=== PATIENT | female | born 1955 | race African-American/Black ===

== ENCOUNTER → 2017-06-03 | Outpatient (CLI) | payer MEDICARE ==
[~2017-06-03] VITALS: Ht 170.2 cm; Wt 63.7 kg
[~2017-06-03] MED LIST: ASPIRINEC PO; COSOPT EYE DROPS5 ML OP; FERRO-TIME325 MG PO; FOLIC ACID1 MG PO; LUMAGEN OP; PANTOPRAZOLE SO40 MG PO; PRED FORTE1 ML OU; TENORMIN25 MG PO; VICODIN PO
--- NOTE | ~2017-06-03 | XA91 ---
[facility] A Service of [facility] RADIOLOGY TEXT RESULTS PATIENT: ESME SANDERS LOCATION: CIVR : 54 UNIT #: [id number] AGE: [address]: Dimitri Kendrick MD SEX: F ORDER DR: [id number] [facility] [address] [place], [place] [address] [id number] O MR#: [id number] Acc #: [id number] NAME: ESME SANDERS : 1955 SEX: F STUDY DATE/TIME: 06/03/2017 9:55 UNIT: CIVR ROOM: STUDY DESCRIPTION: XA CVC Tunneled W Port Attending Physician: Dimitri Kendrick M.D., Ph.D. Ordering Physician: Dimitri Kendrick M.D., Ph.D. Primary Care Physician: Dom Nunez M.D. MEDICAL IMAGING REPORT This report is preliminary unless electronic signature is present EXAM MediPort placement INDICATION This patient has a history of colon cancer. She underwent right hemicolectomy in April 2017. FINDINGS The procedure was explained to the patient including risks, benefits, potential complications and potential for alternative forms of treatment. Informed consent was obtained. Prior to initiating the procedure, a formal time-out procedure was performed. Using all elements of maximal sterile barrier technique including hand hygiene, caps, sterile gowns, gloves and masks, the right neck and chest were prepped with 2% Chlorhexidine for cutaneous antisepsis and covered with a large sterile sheet. The ultrasound probe was covered with a sterile probe cover and sterile gel was applied. Real-time sterile ultrasound guidance was used to localize the right internal jugular vein which was found to be patent and compressible. Hard copy ultrasound image was obtained. After local anesthesia with 1% Xylocaine, the vein was punctured using real-time sterile ultrasound guidance. An 0.018 guidewire was advanced into the superior vena cava under fluoroscopic guidance. A micropuncture sheath was placed and a J-wire was advanced into the inferior vena cava under fluoroscopic guidance. Skin and subcutaneous tissues of the right anterolateral chest wall were anesthetized with buffered Lidocaine and Lidocaine with epinephrine. Port pocket was created using a combination of blunt and sharp dissection. The port was seated within the pocket and secured using 2 3-0 Vicryl sutures and then was tunneled up through the right anterolateral chest wall to the insertion site at the neck. Peel away sheath was advanced over the wire. Catheter was measured and trimmed and then advanced through the peel away sheath and positioned within the superior vena cava. Following placement [facility] A Service of [facility] RADIOLOGY TEXT RESULTS PATIENT: ESME SANDERS LOCATION: CIVR : 54 UNIT #: [id number] AGE: [address]: Dimitri Kendrick MD SEX: F ORDER DR: of the catheter, it flushed and aspirated easily. Deep layer of the port pocket was closed using interrupted 3-0 Vicryl sutures and a running 4-0 Monocryl suture was used to close the skin. Single 4-0 Monocryl suture was used to close the insertion site at the neck. Position of the catheter was confirmed with a radiographic image. Total fluoroscopy time was 0.1 minutes. AK was 1 mGy. Patient received moderate sedation consisting of 2 mg of Versed and 100 mcg of Fentanyl. I supervised the IVR nurse and monitored the patient's vital signs for a total of 30 minutes of [id number] time. IMPRESSION Successful placement of a right internal jugular vein MediPort which terminates in the superior vena cava. This catheter is ready for immediate use. Ultrasound and fluoroscopy were used during placement of the catheter and permanent images were saved. Dictated by... Sowmya Carter M.D. THIS IS AN ELECTRONICALLY VERIFIED REPORT Sowmya Carter M.D. at 06/04/2017 4:48 PM SUHAIL/uriel TD: 06/04/2017 08:56 JOB #: [id number] MEDICAL IMAGING REPORT Page 1 of 1 COPY
[2017-06-03 08:27] LABS: BASOPHIL% 0.6 % (0-2.5); DIFF IND NO; EOSINOPHIL# 0.1 X10e3 (0-0.7); EOSINOPHIL% 1.5 % (0.0-7.0); HEMOGLOBIN 12.7 gm/dL (12.0-16.0); LYMPHOCYTE% 21.5 % (17.0-45.0); MEAN CELL VOLUME 82.9 FL (83-96); MEAN CORPUSCULAR HEMOGLOBIN 26.3 PG (28-34); MEAN CORPUSCULAR HGB CONC 31.8 g/dL (30-36); MEAN PLATELET VOLUME 8.1 FL (6.5-11.5); MONOCYTE# 0.4 X10e3 (0-1.0); MONOCYTE% 9.1 % (3.0-12.0); NEUTROPHIL# 3.2 X10e3 (1.5-7.1); NEUTROPHIL% 67.3 % (40-75); PLATELET COUNT 123 X10e3 (140-420); RED BLOOD COUNT 4.83 X10e (3.90-5.30); RED CELL DISTRIBUTION WIDTH 22.6 % (11.0-15.5); WHITE BLOOD COUNT 4.8 X10e3 (4.0-10.5)
[2017-06-03 08:37] LABS: INR 1.1; PARTIAL THROMBOPLASTIN TIME 29.1 SECONDS (23.5-31.3); PROTHROMBIN TIME (PATIENT) 11.4 SECONDS (10.0-11.7)
== END | disposition home or self-care (01) ==
LOC: CIVR 07:38
PROVIDERS: Internal Medicine Hematology & Oncology
DX: C18.9 Malignant neoplasm of colon, unspecified (principal); Z45.2 Encounter for adjustment and management of vascular access device
CPT/HCPCS: 36415; 76937; 77001; 85025; 85610; 85730; C1788; C1894; J0690; J1642; J2250; J3010